=== PATIENT | male | born 1960 | race Caucasian/White ===

== ENCOUNTER 2016-07-30 17:18 | Inpatient (IN) | payer SELFPAY ==
[~2016-07-30] VITALS: Ht 188 cm; Wt 99.8 kg
--- NOTE | ~2016-07-30 | HEMODYNAMI ---
PATIENT:KENIA JOINER MEDICAL RECORD: [id number] : 58 LOCATION:[facility] D.2117 ADMISSION DATE: 07/30/16 Generatedon:07/31/201611:51 Patient name: KENIA JOINER Patient #: [id number] SSN: DO B: 1960 Date of study: 07/31/2016 Page: Of Hemodynamic Procedure Report Patient Data Patient Demographics Procedure consent was obtained First Name: KENIA Gender: Male Last Name: MARISEL : 1960 Patient #: [id number] Age: 56 year(s) Race: Unknown Additional ID: [id number] Contact details [address]: [address] [place] [address] State: [place] City: [place] Zip code: [address] Past Medical History Allergies: No known allergies Admission Admission Data Admission Date: 07/30/2016 Admission Time: 19:06 Room #: D2117 Lab Results Lab Result Date: 07/31/2016 Lab Result Time: 0:00 Biochemistry Name Units Result Min Max BUN mg/dl 13 --(--*-)-- 7 18 Creatinine mg/dl 1 --(--*-)-- 0.6 1.3 CBC Name Units Result Min Max Hemoglobin g/dl 14.6 --(-*--)-- 13.5 17.5 Procedure Procedure Types Cath Procedure Diagnostic Procedure [facility] w/Coronaries PCI Procedure Coronary Stent Initial PTCA Additional Miscellaneous Procedures Moderate Sedation up to 45 minutes Procedure Description Procedure Date Procedure Date: 07/31/2016 Procedure Start Time: 10:51 Procedure End Time: 11:49 Procedure Staff Name Function Flaquito Marie MD Performing Physician Jose G Deluca RT Scrub Evangelina Storm RN Nurse García Paulino RT Monitor Procedure Data Cath Procedure Fluoroscopy Diagnostic fluoroscopy Total fluoroscopy Time: time: 20.9 min 20.9 min Diagnostic fluoroscopy Total fluoroscopy dose: dose: 3701 mGy 3701 mGy Contrast Material Contrast Material Type Amount (ml) Isovue 300 292 Entry Location Entry Primary Successful Side Size Upsize Upsize Entry Closure Succes sful Closure Location (Fr) 1 (Fr) 2 (Fr) Remarks Device Remarks Femoral Right 6 Fr Exoseal artery Short Diagnostic catheters Device Type Used For End Catheter Placement Cordis 5Fr JL 4.0 Left Coronary Catheter (MP) Angiography Cordis 5Fr 3DRC Catheter Right Coronary (MP) Angiography Cordis 5Fr Pigtail LV Angiography Catheter (MP) Procedure Complications No complications Procedure Medications Medication Administration Route Dosage Radial Cocktail added to field 1 syringe (Verapomil 2mg/Nitro 400mcg/Heparin 1500units) Oxygen NC 2 l/min Heparin Flush Bag added to field 2 bags (1000units/500ml NS) Lidocaine 2% added to field 20 Versed I.V. 1 mg Fentanyl I.V. 50 mcg Versed I.V. 1 mg Fentanyl I.V. 50 mcg Heparin Bolus I.V. 5000 units Integrilin (Bolus I.V. 9 ml 2mg/ml) Versed I.V. 1 mg Fentanyl I.V. 50 mcg Versed I.V. 1 mg Fentanyl I.V. 50 mcg Heparin Bolus I.V. 2000 units Nitroglycerin IC/IA added to field 500 mcg unlisted medication Plavix P.O. 75 mg Hemodynamics Rest HGB: 14.6 (g/dl) Heart Rate: 55 (bpm) Pressure Samples Time Site Value (mmHg) Purpose Heart Use Rate(bpm) 10:56 LV 124/13,18 EDP 56 10:57 AO 120/64(87) Pullback 54 10:57 LV 112/15,16 Pullback 54 Gradients Valve Time Site 1 Site 2 Mean SEP/DFP Peak To Heart Use (mmHg) (sec/min) Peak Rate (mmHg) (bpm) Aortic 10:57 LV AO 0 1 0 54 112/15,16 120/64(87) Calculations Valve P-P Mean Valve Index Valve Source Name Gradient Area Flow (cm2) Aortic 0 0 0 0 Snapshots Pre Cath Intra NCS Post Cath Vital Signs Time Heart Resp SPO2 NIBP (mmHg) Rhythm Pain Sedation Rate (ipm) (%) Status Level (bpm) 10:33:01 55 12 95 169/89(136) SB 0 (11) 10(A) , No pain 10:37:20 58 19 90 165/84(124) SB 0 (11) 10(A) , No pain 10:41:40 53 17 96 147/78(120) SB 0 (11) 10(A) , No pain 10:46:39 48 16 97 Measuring SB 0 (11) 10(A) , No pain 10:46:43 55 16 96 154/77(121) SB 0 (11) 10(A) , No pain 10:50:59 54 16 96 150/78(114) SB 0 (11) 10(A) , No pain 10:55:17 55 16 98 141/70(111) SB 0 (11) 9(A) , No pain 10:59:31 55 16 98 131/67(108) SB 0 (11) 9(A) , No pain 11:03:43 54 16 98 123/65(104) SB 0 (11) 9(A) , No pain 11:07:51 49 16 98 134/70(100) SB 0 (11) 9(A) , No pain 11:12:48 50 16 96 138/69(97) SB 0 (11) 9(A) , No pain 11:16:58 56 16 96 142/78(118) SB 0 (11) 9(A) , No pain 11:21:07 56 16 96 156/82(129) NSR w/ ST 0 (11) 9(A) Elevation , No pain 11:25:21 57 16 96 165/90(139) NSR w/ ST 0 (11) 9(A) Elevation , No pain 11:29:38 53 16 96 170/99(139) NSR w/ ST 0 (11) 9(A) Elevation , No pain 11:33:53 58 16 96 166/96(131) NSR w/ ST 0 (11) 9(A) Elevation , No pain 11:38:12 60 16 96 162/89(126) NSR w/ ST 0 (11) 9(A) Elevation , No pain 11:42:27 58 16 96 156/91(122) NSR w/ ST 0 (11) 9(A) Elevation , No pain 11:46:33 54 16 96 148/88(130) NSR w/ ST 0 (11) 9(A) Elevation , No pain Medications Time Medication Route Dose Verified Delivered Reason Note s Effectiveness by by 10:35:57 Oxygen NC 2 l/min Flaquito Evangelina Per physician St. Jey Storm RN, MD 10:42:57 Radial Cocktail added 1 Flaquito Flaquito used for (Verapomil to syringe Lizzeth Lizzeth procedure 2mg/Nitro field MD LYLE 400mcg/Heparin 1500units) 10:43:15 Heparin Flush added 2 bags Flaquito Alexandreory used for Bag to [facility] procedure (1000units/500ml field MD LYEL NS) 10:43:24 Lidocaine 2% added 20ml Flaquito Flaquito used for to vial [place] Lizzeth procedure field MD LYLE 10:48:26 Versed I.V. 1 mg Flaquito Evangelina for sedation St. Jey Storm RN, MD 10:48:32 Fentanyl I.V. 50 mcg Flaquito Evangelina for sedation St. Jey Storm RN, MD 10:52:54 Versed I.V. 1 mg Flaquito Evangelina for sedation St. Jey Storm RN, MD 10:52:56 Fentanyl I.V. 50 mcg Flaquito Evangelina for sedation St. Jey Storm RN, MD 10:59:07 Heparin Bolus I.V. 5000 Flaquito Evangelina for dose units St. Jey Storm RN anticoagulation verified MD with dr escoto 11:18:07 dr informed Flaquito Huddleston ST elevation Dr Ivonne alan. [place] Khanna MD, MD informed of, and is aware of ST elevation. 11:18:22 Versed I.V. 1 mg Flaquito Evangelina for sedation St. Jey Storm RN, MD 11:18:29 Fentanyl I.V. 50 mcg Flaquito Evangelina for sedation St. Jey Storm RN, MD 11:19:37 Integrilin I.V. 9 ml Flaquito Evangelina for wast ed 1 (Bolus 2mg/ml) St. Jey Storm RN antiplatelet ml MD therapy 11:23:28 Versed I.V. 1 mg Flaquito Evangelina for sedation St. Jey Storm RN, MD 11:23:31 Fentanyl I.V. 50 mcg Flaquito Evangelina for sedation St. Jey Storm RN, MD 11:26:21 Heparin Bolus I.V. 2000 Flaquito Evangelina for dose units St. Jey Storm RN anticoagulation verified wtih dr marie 11:36:18 Nitroglycerin added 500 mcg Flaquito Flaquito Per physician IC/IA to LizzethJey Andersen MD, MD 11:45:44 Plavix P.O. 75 mg Flaquito Hutchinson for St. Jey Storm RN antiplatelet MD therapy Procedure Log Time Note 10:10:58 Jose G Deluca RT(R) sent for patient. Start room use. 10:25:54 ACC Patient presents with Unstable Angina CCS Anginal Class 3--Marked limitation of physical activity, angina occurs with ordinary activity.. 10:25:56 Diagnostic Cath status Urgent 10:26:10 Time tracking: Call back 10:26:14 Plan of Care:Hemodynamics will remain stable., Cardiac rhythm will remain stable., Comfort level will be maintained., Respiratory function will remain adequate., Patient/ family verbilizes understanding of procedure., Procedure tolerated without complication., Recovers from procedure without complications.. 10:26:21 Patient received from PCU to CCL 2 Alert and oriented. Tansferred to table in Supine position. 10:26:22 Warm blankets applied, and narciso hugger turned on for patient comfort. 10:26:23 Correct patient and procedure confirmed by team. 10:26:24 Signed procedure consent form obtained from patient. 10:26:25 ECG and BP/O2 sat monitors applied to patient. 10:31:54 Vital chart was started 10:31:55 Baseline sample Acquired. 10:31:59 Rhythm: sinus bradycardia 10:32:00 Full Disclosure recording started 10:35:57 Oxygen 2 l/min NC was administered by Evangelina Storm RN; Per physician; 10:39:55 H&P Date Dictated: 07/30/2016 Within 30 days and on chart.. 10:39:56 Pre-procedure instructions explained to patient. 10:39:56 Pre-op teaching completed and patient verbalized understanding. 10:39:58 Family unavailable. 10:40:00 Patient NPO since Midnight. 10:40:58 Patient allergic to No known allergies 10:41:01 Is the patient allergic to Iodine/contrast media? No. 10:41:05 Is patient on blood thinner?Yes 10:41:08 ACC The patient was administered the following blood thiners within the last 24 hours: ACCPlavix 10:41:10 Patient diabetic? No. 10:41:11 ----Pre-sedation anethsthesia assessment.---- 10:41:13 Previous problem with sedation/anesthesia? No ? 10:41:14 Snore? Yes 10:41:15 Sleep apnea? Yes 10:41:16 Deviated septum? No 10:41:17 Opens mouth fully? Yes 10:41:19 Sticks out tongue? Yes 10:41:22 Airway obstruction? No ? 10:41:24 Dentures? No ? 10:41:26 Pre procedure: right dorsailis pedis pulse 1+ Palpable, but thready & weak; easily obliterated 10:41:29 Modified Robby's test Ulnar > 7 seconds. 10:41:31 Patient pain scale 0/10 ?. 10:41:53 IV patent on arrival in left antecubital with 0.9% NaCl at 10ml/hr. 10:42:33 Lab Result : BUN 13 mg/dl 10:42:33 Lab Result : Creatinine 1 mg/dl 10:42:33 Lab Result : Hemoglobin 14.6 g/dl 10:42:36 Lab results completed and on chart. 10:42:38 Right Radial & Right Groin area was prepped with chlora-prep and draped in sterile fashion 10:42:39 Alarms reviewed by R. N. 10:42:39 Sharps counted by scrub and verified by R.N. 10:42:40 Physician paged 10:42:57 Radial Cocktail (Verapomil 2mg/Nitro 400mcg/Heparin 1500units) 1 syringe added to field was administered by Flaquito Marie MD; used for procedure; 10:43:15 Heparin Flush Bag (1000units/500ml NS) 2 bags added to field was administered by Flaquito Marie MD; used for procedure; 10:43:24 Lidocaine 2% 20ml vial added to field was administered by Flaquito Marie MD; used for procedure; 10:46:40 Zero performed for pressure channel P1 10:46:53 Acist Syringe opened to sterile field. 10:46:54 Medline Cath Pack opened to sterile field. 10:46:54 Bag Decanter opened to sterile field. 10:46:55 Terumo 6Fr Slender Glidesheath opened to sterile field. 10:46:55 St Manuel 260cm J .035 wire opened to sterile field. 10:46:55 Acist Hand Control opened to sterile field. 10:46:56 Acist Manifold opened to sterile field. 10:46:56 Tegaderm 4 x 4 opened to sterile field. 10:46:57 MBrace Wrist Support opened to sterile field. 10:47:04 --------ALL STOP TIME OUT------ 10:47:05 Final Timeout: patient, procedure, and site verified with staff and physician. All members of the team are in agreement. 10:47:08 Right Radial & Right Groin site verified by team. 10:47:10 Physical assessment completed. ASA score P 2 - A patient with mild systemic disease as per Flaquito Marie MD. 10:47:14 Sedation plan: IV Moderate Sedation Versed, Fentanyl 10:48:26 Versed 1 mg I.V. was administered by Evangelina Storm RN; for sedation; 10:48:32 Fentanyl 50 mcg I.V. was administered by Evangelina Storm RN; for sedation; 10:50:20 Use device set Femoral Dx 10:50:21 Acist Syringe opened to sterile field. 10:50:21 Bag Decanter opened to sterile field. 10:50:22 Medline Cath Pack opened to sterile field. 10:50:22 St Manuel 260cm J .035 wire opened to sterile field. 10:50:24 Acist Hand Control opened to sterile field. 10:50:25 Acist Manifold opened to sterile field. 10:50:25 Diagnostic Infinity 5Fr Multipack catheter opened to sterile field. 10:50:26 Tegaderm 4 x 4 opened to sterile field. 10:50:37 Terumo 6Fr [place] Sheath opened to sterile field. 10:50:54 Procedure started. 10:51:04 Local anesthetic to right femoral artery with Lidocaine 2% by Flaquito Marie MD.INITIAL ACCESS ONLY 10:51:12 A 6 Fr Short sheath was inserted into the Right Femoral artery 10:51:18 A Cordis 5Fr JL 4.0 Catheter () was advanced over the wire and used for Left Coronary Angiography. 10:52:11 LCA angiography performed. 10:52:54 Versed 1 mg I.V. was administered by Evangelina Storm RN; for sedation; 10:52:56 Fentanyl 50 mcg I.V. was administered by Evangelina Storm RN; for sedation; 10:53:54 Catheter removed. 10:54:01 A Cordis 5Fr 3DRC Catheter (MP) was advanced over the wire and used for Right Coronary Angiography. 10:55:07 RCA angiography performed. 10:55:08 Catheter removed. 10:55:14 A Cordis 5Fr Pigtail Catheter (MP) was advanced over the wire and used for LV Angiography. 10:55:25 Garvin Relay Networkisper J 300cm 0.014 guide wire opened to sterile field. 10:56:16 LV angiography performed. 10:56:17 LV gram done using FELIPE 10:56:18 LV hemodynamics recorded. 10:56:21 Injector settings: Ml/sec: 10, Volume: 20, 10:56:52 EF : 60 % 10:56:56 Catheter removed. 10:57:41 ACC PCI Site: mLAD has 100% stenosis. 10:57:43 ACC Pre-intervention PAULY Flow is 3. 10:59:07 Heparin Bolus 5000 units I.V. was administered by Evangelina Storm RN; for anticoagulation; dose verified with dr escoto 10:59:11 Cordis 6FR XBLAD 3.5 guide catheter opened to sterile field. 10:59:21 6 Fr XBLAD 3.5 guide catheter was inserted over the wire 10:59:24 AbsioISEptica wire advanced. 11:02:52 Inflation number: 1 A Delancey Sci [place] 3.0 X 15 balloon was prepped and advanced across the Mid LAD, then inflated to 6 PEARL for 0:31 (min:sec). 11:03:45 Inflation number: 2 The Delancey Sci [place] 3.0 X 15 balloon was reinflated across the Mid LAD, to 6 PEARL for 0:14 (min:sec). 11:04:53 Inflation number: 3 The Delancey Sci [place] 3.0 X 15 balloon was reinflated across the Mid LAD, to 6 PEARL for 0:30 (min:sec). 11:05:00 Inflation number: 4 The Delancey Sci [place] 3.0 X 15 balloon was reinflated across the Mid LAD, to 6 PEARL for 0:30 (min:sec). 11:05:26 Inflation number: 5 The Delancey Sci [place] 3.0 X 15 balloon was reinflated across the Mid LAD, to 6 PEARL for 0:25 (min:sec). 11:06:46 Inflation number: 6 The Delancey Sci [place] 3.0 X 15 balloon was reinflated across the Mid LAD, to 12 PEARL for 0:33 (min:sec). 11:07:21 Balloon removed over the wire. 11:10:06 Inflation Number: 7 A Medtronic Integrity 3.0 X 15 stent was prepped and advanced across the Mid LAD. The stent was deployed at 12 PEARL for 0:47 (min:sec). 11:10:28 Stent catheter was removed intact over wire. 11:14:07 Inflation Number: 8 A Medtronic Integrity 3.0 X 22 stent was prepped and advanced across the Mid LAD. The stent was deployed at 14 PEARL for 0:46 (min:sec). 11:16:43 Stent catheter was removed intact over wire. 11:17:15 Wire removed. 11:17:40 ACC PCI Site: Diag1 has 100% stenosis. 11:17:42 ACC Pre-intervention PAULY Flow is 3. 11:17:50 WHISPER wire advanced. 11:18:07 dr page was administered by Flaquito Marie MD; ST elevation; Dr Marie informed of, and is aware of ST elevation. 11:18:22 Versed 1 mg I.V. was administered by Evangelina Storm RN; for sedation; 11:18:29 Fentanyl 50 mcg I.V. was administered by Evangelina Storm RN; for sedation; 11:19:37 Integrilin (Bolus 2mg/ml) 9 ml I.V. was administered by Evangelina Storm RN; for antiplatelet therapy; wasted 1 ml 11:22:31 Wire removed. 11:22:37 Garvin Whisper J 300cm 0.014 guide wire opened to sterile field. 11:22:44 WHISPER wire advanced. 11:23:28 Versed 1 mg I.V. was administered by Evangelina Storm RN; for sedation; 11::31 Fentanyl 50 mcg I.V. was administered by Evangelina Storm RN; for sedation; 11:25:36 Inflation number: 1 A Delancey Sci [place] 3.0 X 15 balloon was prepped and advanced across the 1st Diag, then inflated to 6 PEARL for 0:16 (min:sec). 11:26:21 Heparin Bolus 2000 units I.V. was administered by Evangelina Storm RN; for anticoagulation; dose verified wt dr marie 11:27:37 Wire removed. 11:28:10 Garvin [place] 300cm 0.014 guide wire opened to sterile field. 11:28:23 COUGAR wire advanced. 11:33:20 The Perk Dynamics [place] 3.0 X 15 balloon was advanced and then removed because of failure to cross lesion 11:33:21 The Medtronic Integrity 3.0 X 9 stent was advanced then removed because of failure to cross lesion 11:33:22 Wire removed. 11:33:24 Guide catheter removed. 11:33:53 Medtronic Launcher 6Fr JL 4.0 guide catheter opened to sterile field. 11:34:04 6 Fr JL 4 guide catheter was inserted over the wire 11:36:18 Nitroglycerin IC/IA 500 mcg added to field was administered by Flaquito Marie MD; Per physician; 11:36:56 WHISPER wire advanced. 11:39:38 Inflation Number: 9 A Medtronic Integrity 3.0 X 30 stent was prepped and advanced across the Mid LAD. The stent was deployed at 16 PEARL for 0:30 (min:sec). 11:39:48 Stent catheter was removed intact over wire. 11:39:48 Wire removed. 11:39:49 Guide catheter removed. 11:41:34 ACC Post-intervention PAULY Flow is 3. 11:43:01 Procedure type changed to Cath procedure, Diagnostic procedure, LHC, [facility] w/Coronaries, PCI procedure, Coronary Stent Initial, PTCA Additional, Miscellaneous Procedures, Moderate Sedation up to 45 minutes 11:44:45 Sheath removed intact; hemostasis achieved with Exoseal to the Right Femoral artery. 11:44:47 Procedure ended.(Physican Out) 11:44:58 Fluoroscopy time 20.90 minutes. 11:45:06 Fluoroscopy dose: 3701 mGy 11:45:06 Flurop Dose total: 3701 11:45:41 Contrast amount:Isovue 300 292ml. 11:45:43 Sharps counted by scrub and verified by R.N. 11:45:44 Plavix 75 mg P.O. was administered by Evangelina Storm RN; for antiplatelet therapy; 11:45:44 Insertion/operative site no bleeding no hematoma. 11:45:46 Post-op/insertion site Right Femoral artery dressed using a 4 x 4 and Tegaderm. 11:45:49 Post right femoral artery:stable 11:45:51 Post Procedure Pulses reassessed and unchanged 11:45:53 Post procedure: right dorsailis pedis pulse 1+ Palpable, but thready & weak; easily obliterated. 11:45:56 Post procedure rhythm: sinus rhythm 11:45:57 Post procedure instruction explained to patient.Patient verbalizes understanding. 11:46:17 Cordis 6Fr Exoseal opened to sterile field. 11:49:22 Procedure and supply charges have been captured, reviewed, submitted and are correct. 11:49:26 Procedure Complication : No complications 11:49:46 Vital chart was stopped 11:49:46 See physician's report for complete and final results. 11:49:51 Report given to PCU. 11:49:53 Patient transfered to PCU with Bed. 11:49:55 Procedure ended. 11:49:55 Full Disclosure recording stopped 11:49:59 End room use (Document Last) 11:50:14 ACC-PCI Only Patient was given prescriptions, or instructed by Flaquito Marie MD to start/continue the following medications upon discharge: Plavix Intervention Summary Intervention Notes Time ActionType Lesion and Equipment Action# Pressure Duration Attributes Used 11:02:52 Inflate Mid LAD Delancey 1 6 00:31 balloon Sci [place] 3.0 X 15 balloon 11:03:45 Reinflate Mid LAD Delancey 2 6 00:15 balloon Sci [place] 3.0 X 15 balloon 11:04:53 Reinflate Mid LAD Delancey 3 6 00:30 balloon Sci [place] 3.0 X 15 balloon 11:05:00 Reinflate Mid LAD Delancey 4 6 00:30 balloon Sci [place] 3.0 X 15 balloon 11:05:26 Reinflate Mid LAD Delancey 5 6 00:25 balloon Sci [place] 3.0 X 15 balloon 11:06:46 Reinflate Mid LAD Delancey 6 12 00:33 balloon Sci [place] 3.0 X 15 balloon 11:10:06 Place stent Mid LAD Medtronic 7 12 00:47 Integrity 3.0 X 15 stent 11:14:07 Place stent Mid LAD Medtronic 8 14 00:46 Integrity 3.0 X 22 stent 11:25:36 Inflate 1st Diag Delancey 1 6 00:17 balloon Sci [place] 3.0 X 15 balloon 11:33:20 Discard Delancey Balloon Sci [place] 3.0 X 15 balloon 11:33:21 Discard Medtronic Stent Integrity 3.0 X 9 stent 11:39:38 Place stent Mid LAD Medtronic 9 16 00:30 Integrity 3.0 X 30 stent Device Usage Item Name Manufacture Quantity Catalog Number Hospital Part Current Mini mal Lot# / Charge Number Stock Stock Serial# Code Acist Acist 2 33190 210662 744198 [id number] 20 Syringe Medical Systems Inc Medline Cardinal 2 [id number] 43953 138536 5 Cath Pack Health Bag Microtek 2 2002S 125857 30518 564820 5 BenchPrep Medical Inc. Terumo 6Fr Terumo 1 [id number] 284271 829077 935884 [address] St Manuel 2 [id number] 173950 904399 968097 30 260cm J .035 wire Acist Hand Acist 2 94643 460284 393465 073187 5 Control Medical Systems Inc Acist Acist 2 25206 627639 464190 374856 5 Manifold Medical Systems Inc Tegaderm 4 3M 2 1626W 121347 023100 302893 5 x 4 MBrace Advanced 1 140-0250-00 838958 22554 471723 5 Wrist Vascular Support Dynamics Diagnostic Cardinal 1 [id number] 277010 44133 982744 30 Infinity Health 5Fr Multipack catheter Terumo 6Fr Terumo 1 [id number] 579821 580522 274274 40 [place] Sheath Cordis 5Fr Cardinal 1 717072 5 JL 4.0 Health Catheter (MP) Cordis 5Fr Cardinal 1 325331 5 3DRC Health Catheter (MP) Cordis 5Fr Cardinal 1 260512 5 Pigtail Health Catheter (MP) Garvin Garvin 2 [id number] 797689 345026 579427 5 Whisper J Vascular 300cm 0.014 guide wire Cordis 6FR Cardinal 1 [id number] 573291 128120 431483 10 XBLAD 3.5 Health guide catheter Delancey Sci Delancey 2 [id number] 793147 990794 533082 1 [id number] Tradiio [id number] 3.0 X 15 balloon Medtronic Medtronic 1 [id number] 061342 652359 2 [id number] Integrity 3.0 X 15 stent Medtronic Medtronic 1 [id number] 350352 771132 9 [id number] Integrity 3.0 X 22 stent Garvin Garvin 1 [id number] 614199 194149 896819 1 [place] Vascular 300cm 0.014 guide wire Medtronic Medtronic 1 [id number] 197036 30458 587286 1 Launcher 6Fr JL 4.0 guide catheter Medtronic Medtronic 1 [id number] 899239 218935 0 [id number] Integrity 3.0 X 30 stent Medtronic Medtronic 1 [id number] 174292 825223 8 [id number] Integrity 3.0 X 9 stent Cordis 6Fr Cardinal 1 [id number] 913232 948007 296908 10 [facility] [employer] Signature Audit [place] Stage Time Signature Unsigned Intra-Procedure 07/31/2016 García SALDIVAR(Fatoumata) 11:51:16 AM Signatures Monitor : García Paulino RT Signature : Date : Time : [id number] [place] [address]
[2016-07-30 18:04] LABS: BASOPHILS 0.2 % (0-2); EOSINOPHILS 0.3 % (0-7); HEMATOCRIT 43.4 % (42.0-54.0); HEMOGLOBIN 14.6 g/dL (13.5-17.5); IMMATURE GRANULOCYTES 0.2 % (0-5); LYMPHOCYTES 16.4 % (15-50); MCH 31.7 pg (26.0-34.0); MCHC 33.6 g/dL (31.0-37.0); MCV 94.3 fL (80.0-100.0); MEAN PLATELET VOLUME 10.2 fL (7.4-10.4); MONOCYTES 7.5 % (2-11); NEUTROPHILS 75.4 % (40-80); PLATELET COUNT 231 10x3/uL (130-400); RDW 13.4 % (11.5-14.5); WBC 11.1 10x3/uL (4.8-10.8)
[2016-07-30 18:10] LABS: ALBUMIN 4.2 g/dL (3.4-5.0); ALKALINE PHOSPHATASE 122 U/L (46-116); ALT (SGPT) 38 U/L (10-68); CALC OSMOLALITY 279 mosm/kg (275-300); CALCIUM 9.3 mg/dL (8.5-10.1); CHLORIDE - SERUM 102 mmol/L (98-107); GLUCOSE 131 mg/dL (74-106); POTASSIUM - SERUM 4.1 mmol/L (3.5-5.1); PROTEIN - SERUM 8.3 g/dL (6.4-8.2); SODIUM 139 mmol/L (136-145); UREA NITROGEN 13 mg/dL (7-18); eGFR NON AFRICAN AMERICAN 82 mL/min (90-120)
[2016-07-30 18:12] LABS: INR 1.73 (0.85-1.17); PROTIME 20.2 SECONDS (11.6-15.0)
[2016-07-30 18:22] LABS: APTT 121.2 SECONDS (22.8-39.4)
[2016-07-30 18:26] LABS: CHOL - HDL RATIO 5.6 ratio (2.3-4.9); CHOLESTEROL, TOTAL 241 mg/dL (0-200); CREATINE KINASE 793 UL (21-232); HDL CHOLESTEROL 43 mg/dL (32-96); LDL CHOLESTEROL 169 mg/dL (0-100); LDL-HDL RATIO 3.9 ratio (1.5-3.5); TRIGLYCERIDE 149 mg/dL (30-200)
[2016-07-30 18:30] LABS: TROPONIN-I 6.599 ng/mL (0.000-0.060)
[2016-07-30 19:44] LABS: UDS - AMPHET NEGATIVE QUAL (NEGATIVE); UDS - BARB NEGATIVE QUAL (NEGATIVE); UDS - BENZO NEGATIVE QUAL (NEGATIVE); UDS - COCAINE NEGATIVE QUAL (NEGATIVE); UDS - METH NEGATIVE QUAL (NEGATIVE); UDS - OPIATE POSITIVE QUAL (NEGATIVE); UDS - PCP NEGATIVE QUAL (NEGATIVE); UDS - THC NEGATIVE QUAL (NEGATIVE)
[2016-07-30 19:45] LABS: APPEARANCE CLEAR (CLEAR); BILIRUBIN NEGATIVE (NEGATIVE); COLOR YELLOW (YELLOW); GLUCOSE NEGATIVE (NEGATIVE); KETONE SMALL mg/dL (NEGATIVE); LEUKOCYTE ESTERASE NEGATIVE (NEGATIVE); NITRITE NEGATIVE (NEGATIVE); PROTEIN NEGATIVE (NEGATIVE); SPECIFIC GRAVITY 1.015 (1.005-1.020); UROBILINOGEN NORMAL (NORMAL)
[2016-07-30 19:46] LABS: BACTERIA NONE SEEN /hpf (NONE SEEN); EPITHELIAL CELLS NSEEN /hpf (0-5); RED CELLS - URINE 0-5 /hpf (0-5); WHITE CELLS - URINE NSEEN /hpf (0-5)
[2016-07-30 20:00] VITALS: BP 179/94
[2016-07-30 20:27] VITALS: BMI 28.3
[2016-07-31] VITALS: BP 143/73
[2016-07-31 04:00] VITALS: BP 141/65
[2016-07-31 08:00] VITALS: BP 135/76
[2016-07-31 10:02] LABS: BASOPHILS 0.2 % (0-2); EOSINOPHILS 0.6 % (0-7); HEMATOCRIT 39.1 % (42.0-54.0); IMMATURE GRANULOCYTES 0.2 % (0-5); LYMPHOCYTES 13.5 % (15-50); MCH 31.3 pg (26.0-34.0); MCHC 33.2 g/dL (31.0-37.0); MCV 94.2 fL (80.0-100.0); MEAN PLATELET VOLUME 9.9 fL (7.4-10.4); MONOCYTES 11.8 % (2-11); NEUTROPHILS 73.7 % (40-80); PLATELET COUNT 208 10x3/uL (130-400); RBC 4.15 10x6/uL (4.20-6.10); RDW 13.6 % (11.5-14.5); WBC 10.7 10x3/uL (4.8-10.8)
[2016-07-31 10:16] LABS: CALC OSMOLALITY 279 mosm/kg (275-300); CALCIUM 8.5 mg/dL (8.5-10.1); CARBON DIOXIDE 28.1 mmol/L (21.0-32.0); CHLORIDE - SERUM 104 mmol/L (98-107); GLUCOSE 131 mg/dL (74-106); POTASSIUM - SERUM 3.8 mmol/L (3.5-5.1); SODIUM 140 mmol/L (136-145); UREA NITROGEN 10 mg/dL (7-18); eGFR NON AFRICAN AMERICAN 82 mL/min (90-120)
[2016-07-31 20:00] VITALS: BP 102/50
[2016-08-01 04:00] VITALS: BP 131/81
[2016-08-01 08:13] VITALS: BP 134/78
[2016-08-01 08:45] VITALS: Ht 188 cm; Wt 99.8 kg
[2016-08-01] MEDS ORDERED: PLAVIX75 MG PO (09:04)
[2016-08-01] MEDS ORDERED: LIPITOR20 MG PO (09:05)
[2016-08-01] MEDS ORDERED: BAYER CHEWABLE81 MG PO (09:06)
[2016-08-01] MEDS ORDERED: LOPRESSOR25 MG PO (09:06)
--- NOTE | 2016-08-01 09:15 | HP ---
PATIENT: COUSINKENIA Coronado MEDICAL RECORD: [id number] ACCOUNT: [id number] LOCATION:[facility] D.2116 : 58 ADMISSION DATE: 07/30/16 HISTORY AND PHYSICAL EXAMINATION HISTORY OF PRESENT ILLNESS: A 56-year-old gentleman with known history of coronary artery disease, really no past medical history, had onset of indigestion yesterday. He felt it was secondary to barbecue from the night before he took them. Tums, H2 paula and finally Prevacid have no relief. He presented initially to [facility], was found to have mildly elevated enzymes. He was being set for diagnostic angiography; however, desired a second opinion, left AMA, and presented here. He does have positive enzymes. A left bundle branch block is present early in the a.m. yesterday. We are asked to see him concerning his cardiovascular status. PAST MEDICAL HISTORY: Really no past medical history. MEDICATIONS: None regular. ALLERGIES: None known. SOCIAL HISTORY: He lives in [place] and works here in [employer], smokes about a pack a day, social drinker. REVIEW OF SYSTEMS: The patient reports easy bruising but reports no swollen glands. The patient reports no fever, no night sweats, no significant weight gain, no significant weight loss. No significant exercise tolerance. The patient reports no dry eyes, no irritation, no vision change. Patient reports no difficulty hearing and no ear pain. Patient reports no frequent nose bleeds or nose and sinus problems. Patient reports on arm pain on exertion. No shortness of breath while lying down. No history of heart murmur. Patient reports no cough, no wheezing or coughing up blood. Patient reports no abdominal pain, no vomiting. Normal appetite. No diarrhea and not vomiting blood. No nausea and no constipation. Patient reports no incontinence. No difficulty urinating. No hematuria. No increased frequency. Patient reports no muscle aches. No weakness, no arthralgias, no back pain. No swelling of the extremities. Patient reports no abnormal mole, no jaundice, no rashes. Reports no loss of consciousness. No weakness and no numbness. No seizures, dizziness, or headaches. The patient reports no depression, no sleep disturbance, feeling safe in a relationship and no alcohol abuse. Patient reports on fatigue. Reports no runny nose or sinus pressure. No itching, no hives, and no frequent sneezing. PHYSICAL EXAMINATION: GENERAL: Pleasant gentleman, who appears stated age, in no acute distress. VITAL SIGNS: Blood pressure 141/65, pulse 57 and regular. HEENT: Normocephalic and atraumatic. NECK: No JVD or bruit. HEART: Regular, II/ systolic ejection murmur. LUNGS: Good air excursion. ABDOMEN: Soft and nontender. EXTREMITIES: Pulses 2+ with no edema. LABORATORY DATA: ECG shows left bundle branch. HISTORY AND PHYSICAL [id number] COUSINSKENIA IMPRESSION: Acute coronary syndrome, non-ST elevation myocardial infarction. PLAN: For angiography, intervention based on above. TRANSINT:[id number] Voice Confirmation ID: [id number] DOCUMENT ID: [id number] SKYLER MONTIEL MD at 0915 CC: [id number] DICTATION DATE: 07/31/16 09 CONSERVATION ASSISTANT: 07/31/16 1112 ADM IN [place] [address] [place] [address]
--- NOTE | 2016-08-01 09:15 | OP ---
PATIENT NAME: KENIA JOINER MEDICAL RECORD: [id number] :58 LOCATION:D.M2 D.2117 ADMISSION DATE:07/30/16 SURGEON: SKYLER MONTIEL MD DATE OF OPERATION: 07/31/2016 PROCEDURE: Left heart catheterization, selective coronary angiography, right femoral artery approach. CATHETERS: A 5-Serbian sheath, 5/4 left and right Charan, 5/4 pig. The procedure was well tolerated and the patient returned to luo. Sheath removed. We proceeded immediately to PTCA stent of the LAD. FINDINGS: Left ventriculography in 30-degree FELIPE view: Normal wall motion and normal systolic function. CORONARY ANATOMY: LEFT MAIN: Left main is free of disease. LAD: After the takeoff of the diagonal was totally occluded in its mid portion with PAULY flow 1 distally. CIRCUMFLEX: Circumflex is moderate sized vessel 80% stenosis mid portion. RIGHT CORONARY ARTERY: Dominant artery, gives rise to PDA, free of disease. IMPRESSION: Plan intervention to the LAD momentarily. DESCRIPTION: A 5-Serbian sheath was changed for a 6-Serbian sheath. The XB LAD guide catheter provided good catheter support. We were able to cross the subtotal occluded LAD down this portion of vessel. A 3.0 x 15 mm [place] balloon was placed up and down this with restorationist of PAULY 2 flow. Next, a 3.0 x 15 mm Integrity nondrug-eluting stent inflated up to 14 atmospheres in the mid portion. At the ostial stenosis takeoff of diagonal, we placed a 3.0 x 18 mm Integrity nondrug-eluting stent inflated to 14 atmosphere. Unfortunately, this showed snowplowing and some dissection into the diagonal. We attempted multiple wires to cross the diagonal; however, we were unable to cross this through the lumen. Next, balloon withdrawn, this showed more proximal dissection in the LAD not present previously, this was covered with 3.0 x 30 mm Integrity nondrug-eluting stent up to 14 atmospheres. Final injection shows excellent resolution of the last dissection with no contrast ____ final angiography shows improvement in LAD flow distally, dissection, snowplowing in the diagonal with loss of this vessel. PLAN: Intervention of circumflex in the future. TRANSINT:[id number] Voice Confirmation ID: [id number] DOCUMENT ID: [id number] SKYLER MONTIEL MD at 0915 CC: [id number] DICTATION DATE: 07/31/16 1154 NAPHTHALENE OPERATOR: 07/31/162119 ADM IN [facility] [address] [place] [address]
--- NOTE | 2016-08-02 13:39 | DS ---
PATIENT:KENIA JOINER :58 MEDICAL RECORD: [id number] DISCHARGE SUMMARY ADMISSION DATE: 07/30/16 DISCHARGE DATE: 08/01/16 DATE OF ADMISSION: 07/30/2016. DATE OF DISCHARGE: 08/01/2016. PROBLEM LIST: 1. Acute myocardial infarction. 2. Hypertension. 3. Hyperlipidemia. PROCEDURE PERFORMED: 1. Left heart cath. 2. Intervention to the LAD. BRIEF HISTORY AND HOSPITAL COURSE: Admitted. Initially was seen at [facility] with acute myocardial infarction, left there AMA, presented here later in the day and was found to have subtotal LAD which was stented. He did have loss of a diagonal branch with residual disease in the circumflex ____ on later date. Placed on beta blockade, Plavix, aspirin, statin. Encouraged extensively on smoking cessation. We will see him back in for intervention of the circ at a later date. TRANSINT:[id number] Voice Confirmation ID: [id number] DOCUMENT ID: [id number] SKYLER MONTIEL MD at 1339 CC: [id number] DICTATION DATE: 08/01/16 0858 BOILER RIVETER: 08/02/16 0001 DIS IN 08/01/16 [facility] [address] [place] [address]
== END 2016-08-01 10:08 | disposition home or self-care (01) | DRG 249 ==
LOC: D.ER 17:18 → D.M2 18:06
PROVIDERS: Emergency Medicine; ADMIT Internal Medicine Interventional Cardiology
PROC: B2111ZZ Fluoroscopy of Multiple Coronary Arteries using Low Osmolar Contrast (ICD-10-PCS; 2016-07-31)
PROC: B2151ZZ Fluoroscopy of Left Heart using Low Osmolar Contrast (ICD-10-PCS; 2016-07-31)
PROC: 02713FZ Dilation of Coronary Artery, Two Arteries with Three Intraluminal Devices, Percutaneous Approach (ICD-10-PCS; principal; 2016-07-31 10:00)
PROC: 4A023N7 Measurement of Cardiac Sampling and Pressure, Left Heart, Percutaneous Approach (ICD-10-PCS; 2016-07-31 10:00)
DX: I21.3 ST elevation (STEMI) myocardial infarction of unspecified site (principal); I10 Essential (primary) hypertension; E78.5 Hyperlipidemia, unspecified

== ENCOUNTER 2016-08-16 10:33 | Outpatient (CLI) | payer MEDICAID ==
[~2016-08-16] VITALS: Ht 188 cm; Wt 104.5 kg
--- NOTE | ~2016-08-16 | OP ---
PATIENT NAME: KENIA JOINER MEDICAL RECORD: [id number] :58 LOCATION:D.CAT ADMISSION DATE: SURGEON: SKYLER MONTIEL MD DATE OF OPERATION: 08/16/2016 PTCA Stent Report DESCRIPTION OF PROCEDURE: After a 6-Sami sheath placed in right femoral artery, an XB LAD guide catheter provided excellent guide catheter support followed by a 300 cm Whisper wire was placed across the 90% stenosis of the circumflex down to a portion of vessel. Next, pre-deployment balloon used was a 2.5 x 15 mm [place] balloon, inflated up to 6 and 8 atmospheres. Next, the stents deployed were midvessel 3.0 x 15 mm Integrity nondrug-eluting stent up to 14 atmospheres, more proximally, a 12 mm x 3.0 Integrity nondrug-eluting stent, again inflated up to 14 atmospheres. Final injection shows excellent resolution of a 90% stenosis of circ to no significant residual. PAULY flow was 3 throughout the procedure. The patient was previously on Plavix. Heparin was given in the lab. Sheath was closed with ExoSeal device. TRANSINT:[id number] Voice Confirmation ID: [id number] DOCUMENT ID: [id number] SKYLER MONTIEL MD CC: [id number] DICTATION DATE: 08/16/16 1342 DOWEL POINTER: 08/16/16 2333 DEP CLI 08/16/16 [place] [place] [address]
--- NOTE | ~2016-08-16 | HEMODYNAMI ---
PATIENT:KENIA JOINER MEDICAL RECORD: [id number] : 58 LOCATION:DSHEBA ADMISSION DATE: 08/16/16 Generatedon:08/16/201613:49 Patient name: KENIA JOINER Patient #: [id number] SSN: [id number] : 1960 Date of study: 08/16/2016 Page: Of Hemodynamic Procedure Report Patient Data Patient Demographics Procedure consent was obtained First Name: KENIA Gender: Male Last Name: MARISEL : 1960 Patient #: [id number] Age: 56 year(s) Race: SSN: [id number] Additional ID: [id number] Contact details Address: [address] [place] [address] State: [place] City: [place] Zip code: [address] Past Medical History Allergies: No known allergies Admission Admission Data Admission Date: 08/16/2016 Admission Time: 10:33 Arrival Date: 08/16/2016 Arrival Time: 13:00 Admit Source: Other Insurance Payor: Medicaid Height (in.): 72 BSA: 2.28 (m2) Height (cm.): 182.88 BMI: 31.74 (kg/m2) Weight (lbs.): 234 Weight (kg.): 106.14 Lab Results Lab Result Date: 08/16/2016 Lab Result Time: 0:00 Biochemistry Name Units Result Min Max BUN mg/dl 19 --(----)*- 7 18 Creatinine mg/dl 0.8 --(-*--)-- 0.6 1.3 CBC Name Units Result Min Max Hemoglobin g/dl 12.7 -*(----)-- 13.5 17.5 Procedure Procedure Types Cath Procedure PCI Procedure Coronary Stent Initial Miscellaneous Procedures Moderate Sedation up to 30 minutes Procedure Description Procedure Date Procedure Date: 08/16/2016 Procedure Start Time: 13:18 Procedure End Time: 13:47 Procedure Staff Name Function Flaquito Moreau MD Performing Physician Elsy Peters RT Scrub Miky Bro RN Nurse García Paulino RT Monitor Procedure Data Cath Procedure Fluoroscopy Diagnostic fluoroscopy Total fluoroscopy Time: 6.1 time: 6.1 min min Diagnostic fluoroscopy Total fluoroscopy dose: dose: 1192 mGy 1192 mGy Contrast Material Contrast Material Type Amount (ml) Isovue 300 101 Entry Location Entry Primary Successful Side Size Upsize Upsize Entry Closure Succes sful Closure Location (Fr) 1 (Fr) 2 (Fr) Remarks Device Remarks Femoral Right 6 Fr Exoseal artery Short Procedure Complications No complications Procedure Medications Medication Administration Route Dosage Oxygen NC 2 l/min Lidocaine 2% added to field 20 Heparin Flush Bag added to field 2 bags (1000units/500ml NS) 0.9% NaCl I.V. 100 ml/hr Versed I.V. 1 mg Fentanyl I.V. 50 mcg Versed I.V. 1 mg Fentanyl I.V. 50 mcg Versed I.V. 1 mg Fentanyl I.V. 50 mcg Heparin Bolus I.V. 4000 units Nitroglycerin IC/IA I.C. 100 mcg Versed I.V. 1 mg Fentanyl I.V. 50 mcg Versed I.V. 1 mg Hemodynamics Rest BSA: 2.28 (m2) HGB: 12.7 (g/dl) O2 Consumption: Estimated: 260.29 (ml/min) O2 Co nsumption indexed: Estimated:114.16 (ml/min/m) Heart Rate: 60 (bpm) Snapshots Pre Cath Intra NCS Post Cath Vital Signs Time Heart Resp SPO2 NIBP Rhythm Pain Sedation Rate (ipm) (%) (mmHg) Status Level (bpm) 13:10:47 60 16 100 128/74(95) NSR 0 (11) 10(A) , No pain 13:15:01 60 16 95 135/65(87) NSR 0 (11) 10(A) , No pain 13:20:12 55 16 97 109/64(83) NSR 0 (11) 9(A) , No pain 13:24:18 54 15 96 110/64(81) NSR 0 (11) 9(A) , No pain 13:28:26 59 16 98 107/65(78) NSR 0 (11) 9(A) , No pain 13:32:32 55 17 98 125/66(87) NSR 0 (11) 9(A) , No pain 13:36:43 58 16 97 120/68(88) NSR 0 (11) 9(A) , No pain 13:40:53 56 16 98 117/69(83) NSR 0 (11) 10(A) , No pain 13:45:03 56 12 98 112/65(84) NSR 0 (11) 10(A) , No pain Medications Time Medication Route Dose Verified Delivered Reason Notes Effectiveness by by 13:08:44 Oxygen NC 2 Flaquito Buffie used for l/min [facility]. Jey Bro RN procedure 13:08:52 Lidocaine 2% added 20ml Flaquito Flaquito for local to vial [facility] anesthetic field MD LYLE 13:08:58 Heparin Flush added 2 Flaquito Flaquito used for Bag to bags [facility] procedure (1000units/500ml field MD LYLE NS) 13:09:06 0.9% NaCl I.V. 100 Flaquito Buffie Per ml/hr [facility] Jey Bro RN physician 13:12:35 Versed I.V. 1 mg Flaquito Buffie for sedation St. Jey Bro RN, MD 13:12:43 Fentanyl I.V. 50 Flaquito Buffie for sedation mcg [facility] Jey Bro RN, MD 13:15:06 Versed I.V. 1 mg Flaquito Buffie for sedation St. Jey Bro RN, MD 13:15:10 Fentanyl I.V. 50 Flaquito Buffie for sedation mcg [facility] Jey Bro RN, MD 13:18:30 Versed I.V. 1 mg Flaquito Buffie for sedation [facility]. Jey Bro RN, MD 13:18:33 Fentanyl I.V. 50 Flaquito Buffie for sedation mcg [facility] Jey Bro RN, MD 13:22:33 Heparin Bolus I.V. 4000 Flaquito Buffie for sedation verified units [facility]. Jey Bro RN with dr MD craft 13:26:34 Versed I.V. 1 mg Flaquito Buffie for sedation St. Jey Bro RN, MD 13:26:38 Fentanyl I.V. 50 Flaquito Buffie for sedation mcg [facility] Jey Bro RN, MD 13:33:25 Nitroglycerin I.C. 100 Flaquito Flaquito for IC[facility]IA [facility] 13:36:03 Versed I.V. 1 mg Flaquito Buffie for sedation St. Jey Bro RN, MD Procedure Log Time Note 12:32:03 Informed consent obtained and on chart 12:32:07 Diagnostic Cath Status : Elective 12:32:36 Admit Source: Other 12:32:39 Patient Height : 182.88 cm 12:32:43 Patient Weight : 106.14 kg 12:32:47 Arrival Date: 08/16/2016 1:00:00 PM 12:32:54 Insurance Payor : Medicaid 12:35:46 Lab Result : Hemoglobin 12.7 g/dl 12::46 Lab Result : Creatinine 0.8 mg/dl 12:35:46 Lab Result : BUN 19 mg/dl 12:54:22 Miky Bro RN sent for patient. Start room use. 12:54:22 Time tracking: Regular hours 12:54:27 Plan of Care:Hemodynamics will remain stable., Cardiac rhythm will remain stable., Comfort level will be maintained., Respiratory function will remain adequate., Patient/ family verbilizes understanding of procedure., Procedure tolerated without complication., Recovers from procedure without complications.. 12:58:51 Patient received from Pre/Post Procedure [facility] to [facility] 2 Alert and oriented. Tansferred to table in Supine position. 12:58:52 Warm blankets applied, and narciso hugger turned on for patient comfort. 12:58:53 Correct patient and procedure confirmed by team. 12:58:53 ECG and BP/O2 sat monitors applied to patient. 13:08:44 Oxygen 2 l/min NC was administered by Miky Bro RN; used for procedure; 13:08:52 Lidocaine 2% 20ml vial added to field was administered by Flaquito Moreau MD; for local anesthetic; 13:08:58 Heparin Flush Bag (1000units/500ml NS) 2 bags added to field was administered by Flaquito Moreau MD; used for procedure; 13:09:06 0.9% NaCl 100 ml/hr I.V. was administered by Miky Bro RN; Per physician; 13:09:39 Vital chart was started 13:09:40 Baseline sample Acquired. 13:09:43 Rhythm: sinus rhythm 13:09:44 Full Disclosure recording started 13:10:03 H&P Date Dictated: 08/09/2016 Within 30 days and on chart., H&P Addendum completed by physician on day of procedure. (MUST COMPLETE FOR ALL OUTPATIENTS). 13:10:04 Pre-procedure instructions explained to patient. 13:10:04 Pre-op teaching completed and patient verbalized understanding. 13:10:06 Family unavailable. 13:10:07 Patient NPO since Midnight. 13:10:12 Patient allergic to No known allergies 13:10:14 Is the patient allergic to Iodine/contrast media? No. 13:10:19 Is patient on blood thinner?Yes 13:10:22 ACC The patient was administered the following blood thiners within the last 24 hours: ACCPlavix 13:10:24 Patient diabetic? No. 13:10:25 ----Pre-sedation anethsthesia assessment.---- 13:10:27 Previous problem with sedation/anesthesia? No ? 13:10:32 Snore? Yes 13:10:34 Sleep apnea? Yes 13:10:35 Deviated septum? No 13:10:36 Opens mouth fully? Yes 13:10:37 Sticks out tongue? Yes 13:10:39 Airway obstruction? No ? 13:10:41 Dentures? No ? 13:10:43 Pre procedure: right dorsailis pedis pulse 1+ Palpable, but thready & weak; easily obliterated 13:10:47 Patient pain scale 0/10 ?. 13:10:51 IV patent on arrival in left hand with 0.9% NaCl at 10ml/hr. 13:10:54 Lab results completed and on chart. 13:10:56 Right groin area was prepped with chlora-prep and draped in sterile fashion 13:10:57 Alarms reviewed by R. N. 13:10:57 Sharps counted by scrub and verified by R.N. 13:10:59 --------ALL STOP TIME OUT------ 13:10:59 Final Timeout: patient, procedure, and site verified with staff and physician. All members of the team are in agreement. 13:11:00 Right groin site verified by team. 13:11:03 Physical assessment completed. ASA score P 2 - A patient with mild systemic disease as per Flaquito Moreau MD. 13:11:06 Sedation plan: IV Moderate Sedation Versed, Fentanyl 13:12:35 Versed 1 mg I.V. was administered by Buffie Bro RN; for sedation; 13:12:35 Use device set Femoral PCI 13:12:36 Acist Syringe opened to sterile field. 13:12:36 Acist Hand Control opened to sterile field. 13:12:36 Bag Decanter opened to sterile field. 13:12:37 Medline Cath Pack opened to sterile field. 13:12:37 Terumo 6Fr [place] Sheath opened to sterile field. 13:12:38 St Manuel 260cm J .035 wire opened to sterile field. 13:12:38 Merit BasixCompak Inflation Kit opened to sterile field. 13:12:38 Acist Manifold opened to sterile field. 13:12:39 Tegaderm 4 x 4 opened to sterile field. 13:12:43 Fentanyl 50 mcg I.V. was administered by Miky Bro RN; for sedation; 13:15:06 Versed 1 mg I.V. was administered by Miky Bro RN; for sedation; 13:15:10 Fentanyl 50 mcg I.V. was administered by Miky Bro RN; for sedation; 13:18:30 Versed 1 mg I.V. was administered by Miky Bro RN; for sedation; 13:18:33 Fentanyl 50 mcg I.V. was administered by Miky Bro RN; for sedation; 13:18:39 Procedure started. 13:18:43 Local anesthetic to right femoral artery with Lidocaine 2% by Flaquito Moreau MD.INITIAL ACCESS ONLY 13:18:50 A 6 Fr Short sheath was inserted into the Right Femoral artery 13:19:10 Zero performed for pressure channel P1 13:19:14 Zero performed for pressure channel P1 13:19:17 Zero performed for pressure channel P1 13:19:31 Cordis 6FR XBLAD 3.5 guide catheter opened to sterile field. 13:19:31 Garvin Whisper J 300cm 0.014 guide wire opened to sterile field. 13:20:13 ACC PCI Site: [place] has 90% stenosis. 13:20:16 ACC Pre-intervention PAULY Flow is 3. 13:20:22 6 Fr XBLAD 3.5 guide catheter was inserted over the wire 13:22:33 Heparin Bolus 4000 units I.V. was administered by Miky Bro RN; for sedation; verified with dr craft 13:22:42 WHISPER wire advanced. 13:25:41 Inflation number: 1 A [employer] [place] [employer] Sci Custer 2.5 X 15 balloon was prepped and advanced across the Mid CX, then inflated to 10 PEARL for 0:18 (min:sec). 13:26:13 Balloon removed over the wire. 13:26:34 Versed 1 mg I.V. was administered by Miky Bro RN; for sedation; 13::38 Fentanyl 50 mcg I.V. was administered by Miky Bro RN; for sedation; 13:29:07 Inflation Number: 2 A Medtronic Integrity 3.0 X 15 stent was prepped and advanced across the Mid CX. The stent was deployed at 14 PEARL for 0:30 (min:sec). 13:29:58 Inflation number: 3 The stent balloon was then re-inflated across the Mid CX to 8 PEARL for 0:11 (min:sec). 13:31:58 Inflation number: 4 The stent balloon was then re-inflated across the Mid CX to 4 PEARL for 0:07 (min:sec). 13:33:25 Nitroglycerin IC/IA 100 mcg I.C. was administered by Flaquito Moreau MD; for vasodilation; 13:34:42 Balloon removed over the wire. 13:36:03 Versed 1 mg I.V. was administered by Miky Bro RN; for sedation; 13:37:06 Inflation Number: 5 A Medtronic Integrity 3.0 X 12 stent was prepped and advanced across the Mid CX. The stent was deployed at 14 PEARL for 0:34 (min:sec). 13:37:23 Stent catheter was removed intact over wire. 13:37:23 Wire removed. 13:37:24 Guide catheter removed. 13:37:42 Contrast amount:Isovue 300 101ml. 13:37:47 Sheath removed intact; hemostasis achieved with Exoseal to the Right Femoral artery. 13:37:53 Cordis 6Fr Exoseal opened to sterile field. 13:37:55 Procedure ended.(Physican Out) 13:38:07 Fluoroscopy time 06.10 minutes. 13:38:12 Flurop Dose total: 1192 13:38:12 Fluoroscopy dose: 1192 mGy 13:38:14 Sharps counted by scrub and verified by R.N. 13:38:15 Insertion/operative site no bleeding no hematoma. 13:38:18 Post-op/insertion site Right Femoral artery dressed using a 4 x 4 and Tegaderm. 13:38:21 Post right femoral artery:stable 13:38:23 Post Procedure Pulses reassessed and unchanged 13:38:25 Post procedure: right dorsailis pedis pulse 1+ Palpable, but thready & weak; easily obliterated. 13:38:28 Post procedure rhythm: sinus rhythm 13:38:29 Post procedure instruction explained to patient.Patient verbalizes understanding. 13:45:57 Procedure type changed to Cath procedure, PCI procedure, Coronary Stent Initial, Miscellaneous Procedures, Moderate Sedation up to 30 minutes 13:46:49 Procedure and supply charges have been captured, reviewed, submitted and are correct. 13:46:53 Procedure Complication : No complications 13:46:55 Vital chart was stopped 13:46:55 See physician's report for complete and final results. 13:46:56 Report given to Pre/Post Procedure Room. 13:47:00 Patient transfered to Pre/Post Procedure Room with Stretcher. 13:47:05 Procedure ended. 13:47:05 Full Disclosure recording stopped 13:47:08 End room use (Document Last) Intervention Summary Intervention Notes Time ActionType Lesion and Equipment Action# Pressure Duration Attributes Used 13:25:41 Inflate Mid CX [employer] [place] [employer] 1 10 00:18 balloon Sci Custer 2.5 X 15 balloon 13:29:07 Place stent Mid CX Medtronic 2 14 00:30 Integrity 3.0 X 15 stent 13:29:58 Reinflate Mid CX Medtronic 3 8 00:11 stent Integrity balloon 3.0 X 15 stent 13:31:58 Reinflate Mid CX Medtronic 4 4 00:07 stent Integrity balloon 3.0 X 15 stent 13:37:06 Place stent Mid CX Medtronic 5 14 00:34 Integrity 3.0 X 12 stent Device Usage Item Name Manufacture Quantity Catalog Number Hospital Part Current Mini mal Lot# / Charge Number Stock Stock Serial# Code Acist Acist 1 09277 146492 822603 178160 20 Syringe Medical Systems Inc Acist Hand Acist 1 77016 563883 970733 128728 5 Control Medical Systems Inc Bag Microtek 1 2002S 718692 55462 711625 5 MicroPoint [employer] Inc.. Medline Cardinal 1 [id number] 786129 13225 496177 5 DNAdigest Terumo 6Fr Terumo 1 [id number] 577742 254992 250595 [address] Manuel 1 179919 736158 163416 961070 30 260cm J .035 wire Merit Merit 1 [id number] 221075 381338 212553 15 Captive Media Medical Inflation Kit Acist Acist 1 42818 942590 318835 360653 5 Sport[employer]ets [employer] Inc Tegade 4 3M 1 1626W 015798 064975 278991 5 x 4 Cordis 6FR Cardinal 1 [id number] 424621 382914 528754 10 XBLAD 3.5 Health guide catheter Garvin Garvin 1 [id number] 326946 579914 132382 5 Whisper J Vascular 300cm 0.014 guide wire [employer] Sci [place] [employer] 1 [id number] 005467 657010 745692 1 [id number] Inventalator 2.5 X 15 balloon Medtronic Medtronic 1 [id number] 956850 005975 0 [id number] Integrity 3.0 X 15 stent Medtronic Medtronic 1 [id number] 791498 838890 5 [id number] Integrity 3.0 X 12 stent Cordis 6Fr Cardinal 1 [id number] 733841 755668 210231 10 [facility] [employer] Signature Audit Kaplan Stage Time Signature Unsigned Intra-Procedure 08/16/2016 García Paulino 1:48:59 PM RT(R) Signatures Monitor : García Paulino RT Signature : Date : Time : [facility] [address] [place] [address]
[~2016-08-16 10:33] MED LIST: BAYER CHEWABLE81 MG PO; LIPITOR20 MG PO; LOPRESSOR25 MG PO; PLAVIX75 MG PO
[2016-08-16] MEDS ORDERED: ELAVIL25 MG PO (11:10)
[2016-08-16 11:15] VITALS: BP 125/68; Ht 188 cm; Wt 104.5 kg
[2016-08-16 11:35] LABS: BASOPHILS 0.4 % (0-2); EOSINOPHILS 2.8 % (0-7); HEMATOCRIT 38.4 % (42.0-54.0); HEMOGLOBIN 12.7 g/dL (13.5-17.5); IMMATURE GRANULOCYTES 0.3 % (0-5); LYMPHOCYTES 22.1 % (15-50); MCH 30.9 pg (26.0-34.0); MCHC 33.1 g/dL (31.0-37.0); MCV 93.4 fL (80.0-100.0); MEAN PLATELET VOLUME 9.9 fL (7.4-10.4); NEUTROPHILS 65.4 % (40-80); RBC 4.11 10x6/uL (4.20-6.10); WBC 7.2 10x3/uL (4.8-10.8)
[2016-08-16 11:40] LABS: PLATELET COUNT 335 10x3/uL (130-400)
[2016-08-16 11:48] LABS: CALC OSMOLALITY 286 mosm/kg (275-300); CALCIUM 9.3 mg/dL (8.5-10.1); CARBON DIOXIDE 24.2 mmol/L (21.0-32.0); CHLORIDE - SERUM 107 mmol/L (98-107); CREATININE - SERUM 0.8 mg/dL (0.6-1.3); GLUCOSE 90 mg/dL (74-106); POTASSIUM - SERUM 4.1 mmol/L (3.5-5.1); SODIUM 143 mmol/L (136-145); UREA NITROGEN 19 mg/dL (7-18); eGFR NON AFRICAN AMERICAN > 90 mL/min (90-120)
--- NOTE | 2016-08-16 14:15 | NUR ---
RIGHT GROIN CDI, NO HEMATOMA OR BLEEDING NOTED, SOFT TO TOUCH
--- NOTE | 2016-08-16 14:44 | NUR ---
NO CHANGES IN RIGHT GROIN, WATER GIVEN. DENIES FURTHUR NEEDS
--- NOTE | 2016-08-16 17:00 | NUR ---
C/O PAIN IN LEFT BREAST AREA- NO RHYTHM CHANGES IN THE LAST 3 HOURS, DR LOWE. 1705-DR MONTIEL CALL-NEW ORDERS RECEIVED
--- NOTE | 2016-08-16 17:15 | NUR ---
ATIVAN 1MG GIVEN PO, STATES CHEST FEELS BETTER-'I THINK IT WAS HUNGER PAINS". CALL LIGHT WITHIN REACH.
--- NOTE | 2016-08-16 17:55 | NUR ---
DENIES CHEST PAIN, IV D'C WITH CATH TIP INTACT, UP TO RESTROOM-VOID, WRITTEN AND VERBAL INSTRUCTIONS GIVEN AND VERBAL UNDERSTANDING NOTED. D'C HOME WITH FRIEND.
== END 2016-08-16 18:00 | disposition home or self-care (01) ==
LOC: D.CATH 10:33
PROVIDERS: Internal Medicine Interventional Cardiology
DX: I25.119 Atherosclerotic heart disease of native coronary artery with unspecified angina pectoris (principal); Z01.812 Encounter for preprocedural laboratory examination

== ENCOUNTER 2016-08-23 15:48 | Emergency (ER) | payer MEDICAID ==
[2016-08-16 11:15] VITALS: BMI 29.6
[~2016-08-23 15:48] MED LIST changes: +ELAVIL25 MG PO
[2016-08-23 16:52] LABS: BASOPHILS 0.3 % (0-2); EOSINOPHILS 1.5 % (0-7); HEMATOCRIT 38.2 % (42.0-54.0); HEMOGLOBIN 12.7 g/dL (13.5-17.5); IMMATURE GRANULOCYTES 0.3 % (0-5); LYMPHOCYTES 17.8 % (15-50); MCH 30.8 pg (26.0-34.0); MCHC 33.2 g/dL (31.0-37.0); MCV 92.7 fL (80.0-100.0); MEAN PLATELET VOLUME 10.1 fL (7.4-10.4); MONOCYTES 9.3 % (2-11); NEUTROPHILS 70.8 % (40-80); RBC 4.12 10x6/uL (4.20-6.10); RDW 12.9 % (11.5-14.5); WBC 7.4 10x3/uL (4.8-10.8)
[2016-08-23 17:06] LABS: PLATELET COUNT 240 10x3/uL (130-400)
[2016-08-23 17:50] LABS: ALBUMIN 3.6 g/dL (3.4-5.0); ALKALINE PHOSPHATASE 123 U/L (46-116); ALT (SGPT) 27 U/L (10-68); BILIRUBIN - TOTAL 0.34 mg/dL (0.2-1.3); CARBON DIOXIDE 25.5 mmol/L (21.0-32.0); CHLORIDE - SERUM 107 mmol/L (98-107); CHOL - HDL RATIO 5.1 ratio (2.3-4.9); CHOLESTEROL, TOTAL 138 mg/dL (0-200); CKMB 0.8 U/L (0.0-3.6); CREATINE KINASE 55 UL (21-232); CREATININE - SERUM 0.9 mg/dL (0.6-1.3); HDL CHOLESTEROL 27 mg/dL (32-96); LDL CHOLESTEROL 84 mg/dL (0-100); LDL-HDL RATIO 3.1 ratio (1.5-3.5); POTASSIUM - SERUM 4.3 mmol/L (3.5-5.1); PROTEIN - SERUM 7.3 g/dL (6.4-8.2); SODIUM 142 mmol/L (136-145); TRIGLYCERIDE 138 mg/dL (30-200); eGFR NON AFRICAN AMERICAN > 90 mL/min (90-120)
[2016-08-23 18:08] LABS: CALC OSMOLALITY 283 mosm/kg (275-300); CALCIUM 9.3 mg/dL (8.5-10.1); GLUCOSE 106 mg/dL (74-106); UREA NITROGEN 14 mg/dL (7-18)
[2016-08-23 18:11] LABS: TROPONIN-I 0.064 ng/mL (0.000-0.060)
== END 2016-08-23 18:18 | disposition home or self-care (01) ==
LOC: D.ER 15:48
PROVIDERS: Emergency Medicine
DX: I20.8 Other forms of angina pectoris (principal); F17.200 Nicotine dependence, unspecified, uncomplicated

== ENCOUNTER 2017-10-18 20:08 | Emergency (ER) | payer MEDICAID ==
[~2017-10-18] VITALS: Ht 188 cm; Wt 108.6 kg
[2017-10-18 20:32] VITALS: Ht 188 cm; Wt 108.6 kg
[2017-10-18] MEDS ORDERED: NORVASC10 MG PO (22:24)
[2017-10-19 02:48] VITALS: BP 158/83
== END 2017-10-18 22:55 | disposition home or self-care (01) ==
LOC: D.ER 20:08
DX: I10 Essential (primary) hypertension (principal); F17.200 Nicotine dependence, unspecified, uncomplicated

== ENCOUNTER → 2019-07-09 08:17 | Outpatient (CLI) | payer OTHER ==
[2017-10-18 20:32] VITALS: BMI 30.7
[~2019-07-09 08:17] MED LIST changes: +NORVASC10 MG PO
--- NOTE | 2019-07-11 14:16 | EC ---
PATIENT:KENIA JOINER DATE OF SERVICE: 07/09/19 SEX: M MEDICAL RECORD: [id number] DATE OF : 58 LOCATION:D[facility] AGE OF PATIENT: 59 ADMISSION DATE: 07/09/19 REFERRING PHYSICIAN: INTERPRETING PHYSICIAN: SKYLER MONTIEL MD ECHOCARDIOGRAM REPORT ECHO CHARGES 4 ECHO COMPLETE Date: 07/09/19 CLINICAL DIAGNOSIS: AORIIC SCLEROSIS, HX CAD HTN CARDIOMYOPATHY ECHOCARDIOGRAPHIC MEASUREMENTS (adult normal given) AC root (d.<3.7cm) 4.2 cm LV Septum d (<1.2 cm> 1.5 cm Valve Excursion 1.9 cm LV Septum (systole) 1.8 cm Left Atria (s.<4.0cm> 4.1 cm LVPW d(<1.2cm) 1.7 cm RV (d.<2.3cm) 3.9 cm LVPW (sytole) 1.9 cm LV diastole(<5.6CM) 5.9 cm MV E-F(>70mm/sec) cm LV systole 4.1 cm LVOT Diameter 1.9 cm MV exc.(>10mm) 1.3 cm Est.ejection fraction (50-75%) % DOPPLER: LVIT cm/sec A 93.0 cm/sec E 69.0 cm/sec LA cm/sec RVSP 25 mmHg LVOT 121 cm/sec AOP1/2T m/s Asc. Ao 127 cm/sec RVOT 66 cm/sec RA cm/sec PA 103 cm/sec AV Gradient Peak 6.44 mmHg AV Mean 3.44 mmHg AV Area 3.3 cm MV Gradient Peak 6.09 mmHg MV Mean 1.98 mmHg MV Area cm COMMENTS: Detonator Assembler: 2 TAYLOR NULL Branch Office Manager: 3 Dr. Moreau TAPE# PACS Pericardial Effusion N DATE OF SERVICE: Adequate 2D, color flow imaging, spectral Doppler, and M-Mode. LVH is present. LV internal dimensions are normal. Wall motion is normal. EF is greater than or equal to 55%. Aortic valve is tricuspid. No evidence of stenosis by Doppler interrogation. Left atrium upper limits of normal, mildly dilated at 4.1 cm. Mitral valve shows no prolapse. Trace MR. Right-sided chambers are grossly normal. Trace TR. ECHOCARDIOGRAM REPORT [id number] KENIA JOINER 3RD TRANSINT:[id number] Voice Confirmation ID: [id number] DOCUMENT ID: [id number] SKYLER MONTIEL MD at 1416 CC: [id number] DICTATION DATE: 07/10/19842 CENTRAL OFFICE TROUBLE SHOOTER: 07/10/19915 DEP CLI 07/09/19 [place] [id number] [place] [id number]
== END | disposition home or self-care (01) ==
LOC: D.HCCECHO 08:17
PROVIDERS: ATTEND Internal Medicine Interventional Cardiology
DX: I35.8 Other nonrheumatic aortic valve disorders (principal)

== ENCOUNTER → 2020-05-04 08:24 | Outpatient (CLI) | payer OTHER ==
[2017-10-18 20:32] VITALS: BMI 30.7
--- NOTE | 2020-05-05 13:41 | EC ---
PATIENT:KENIA JOINER DATE OF SERVICE: 05/04/20 SEX: M MEDICAL RECORD: [id number] DATE OF : 58 LOCATION:[facility] AGE OF PATIENT: 59 ADMISSION DATE: 05/04/20 REFERRING PHYSICIAN: INTERPRETING PHYSICIAN: SKYLER MONTIEL MD ECHOCARDIOGRAM REPORT ECHO CHARGES 4 ECHO COMPLETE Date: 05/04/20 CLINICAL DIAGNOSIS: CAD/ANGINA/CARDIOMYOPATHY ASSESS EF ECHOCARDIOGRAPHIC MEASUREMENTS (adult normal given) AC root (d.<3.7cm) 4.1 cm LV Septum d (<1.2 cm> 1.2 cm Valve Excursion 1.9 cm LV Septum (systole) 1.6 cm Left Atria (s.<4.0cm> 3.7 cm LVPW d(<1.2cm) 1.4 cm RV (d.<2.3cm) 3.5 cm LVPW (sytole) 1.7 cm LV diastole(<5.6CM) 6.0 cm MV E-F(>70mm/sec) cm LV systole 4.0 cm LVOT Diameter 2.3 cm MV exc.(>10mm) cm Est.ejection fraction (50-75%) % DOPPLER: LVIT cm/sec A 116.0cm/sec E 75.0 cm/sec LA cm/sec RVSP 18 mmHg LVOT 128 cm/sec AOP1/2T m/s Asc. Ao 152 cm/sec RVOT 93 cm/sec RA cm/sec PA 113 cm/sec AV Gradient Peak 9.29 mmHg AV Mean 4.64 mmHg AV Area 2.9 cm MV Gradient Peak 7.04 mmHg MV Mean 1.78 mmHg MV Area cm COMMENTS: Logistics Specialist: 2 TAYLOR NULL Straight Slicing Machine Operator: 3 Dr. Moreau TAPE# PACS Pericardial Effusion N DATE OF SERVICE: Adequate 2D, color-flow imaging, spectral Doppler, and M-Mode FINDINGS: LVH is present. LV internal dimensions are normal. LV shows mild apical, anterior apical hypokinesis. Overall LV function mildly reduced, EF 40% to 45%. Aortic valve sclerosed without evidence of stenosis by Doppler interrogation. Left atrium is normal at 3.7 cm. Mitral valve shows no prolapse. Trace MR. Right side is grossly normal. Trace TR. ECHOCARDIOGRAM REPORT [id number] KENIA JOINER 3RD TRANSINT:[id number] Voice Confirmation ID: [id number] DOCUMENT ID: [id number] SKYLER MONTIEL MD at 1341 CC: [id number] DICTATION DATE: 05/05/20 08 RECREATIONAL COUNSELOR: 05/05/20 1242 DEP CLI 05/04/20 [place] [id number] [place] [id number]
== END | disposition home or self-care (01) ==
LOC: D.HCCARDIO 08:24
PROVIDERS: ATTEND Internal Medicine Cardiovascular Disease
DX: I20.9 Angina pectoris, unspecified (principal); I42.9 Cardiomyopathy, unspecified